=== PATIENT | female | born 1980 | race Two or more races ===

== ENCOUNTER 2018-06-29 05:50 | Inpatient (IN) | payer OTHER ==
[~2018-06-29] VITALS: Ht 152.4 cm; Wt 81.0 kg
[2018-06-29] MEDS ORDERED: OXYTOCIN 30U/ 0.9% NaCL 500ML 500 ML IV ONE (06:07)
[2018-06-29] MEDS ORDERED: D5%-LACTATED RINGERS 1,000 ML IV SCH ×3 (06:07→19:01)
[2018-06-29] MEDS ORDERED: OXYTOCIN 30U/ 0.9% NaCL 500ML 500 ML ONE (06:25)
[2018-06-29] MEDS ORDERED: MISOPROSTOL 200 MCG TABLET ONE (06:25)
[2018-06-29] MEDS ORDERED: LIDOCAINE/PF 1%, 30ML ONE (06:26)
[2018-06-29] MEDS ORDERED: CALCIUM CARBONATE 500 MG TAB.CHEW PO PRN (06:30)
[2018-06-29] MEDS ORDERED: METOCLOPRAMIDE 5 MG/ML, 2ML IVPush PRN (06:30)
[2018-06-29] MEDS ORDERED: TERBUTALINE 1 MG/ML, 1ML SQ PRN (06:30)
[2018-06-29] MEDS ORDERED: TERBUTALINE 1 MG/ML, 1ML IVPush PRN ×2 (06:30)
[2018-06-29] MEDS ORDERED: SODIUM CITRATE/CITRIC ACID 30 ML UDC PO PRN (06:30)
[2018-06-29] MEDS ORDERED: ONDANSETRON 2MG/ML, 2ML IVPush PRN ×2 (06:30→10:30)
[2018-06-29] MEDS ORDERED: ALUMINUM/MAG/SIMETHICONE 30 ML UDC PO PRN (06:30)
[2018-06-29] MEDS ORDERED: FENTANYL PF 100 MCG/2ML IV PRN (06:30)
[2018-06-29 06:31] LABS: BASOPHILS # (AUTO) 0.09 x10^3/uL (0-0.1); BASOPHILS % (AUTO) 1 % (0-1); EOSINOPHILS # (AUTO) 0.02 x10^3/uL (0-0.4); EOSINOPHILS % (AUTO) 0 % (1-7); LYMPHOCYTES # (AUTO) 1.05 x10^3/uL (1-3.4); LYMPHOCYTES % (AUTO) 13 % (22-44); MD NO; MEAN CORPUSCULAR HEMOGLOBIN 25.3 pg (27.0-34.8); MEAN CORPUSCULAR HGB CONC 32.7 g/dL (32.4-35.8); MEAN CORPUSCULAR VOLUME 77.6 fL (80-100); MEAN PLATELET VOLUME 8.7 fL (7.4-10.4); MONOCYTES # (AUTO) 0.37 x10^3/uL (0.2-0.8); MONOCYTES % (AUTO) 5 % (2-9); NEUTROPHILS # (AUTO) 6.58 x10^3/uL (1.8-6.8); NEUTROPHILS % (AUTO) 81 % (42-75); PLATELET COUNT 244 x10^3/uL (130-400); RED CELL DISTRIBUTION WIDTH 16.9 % (9.6-15.2)
[2018-06-29] MEDS ORDERED: FENTANYL PF 100 MCG/2ML ONE ×3 (06:44→20:07)
[2018-06-29] MEDS: FENTANYL PF 100 MCG/2ML IVPush PRN ×2 (06:48→08:48)
[2018-06-29] MEDS: LACTATED RINGERS 1,000 ML IV SCH ×6 (06:49→22:59)
[2018-06-29] MEDS ORDERED: FENTANYL/BUPIV./NS/PF 250 ML EPIDCONT SCH ×2 (08:28→10:14)
[2018-06-29 08:35] VITALS: BP 133/62
[2018-06-29] MEDS ORDERED: FENTANYL PF 500 MCG, BUPIVACAINE/PF 0.5%, 30ML 62.5 ML in SODIUM CHLORIDE 0.9% 177.5 ML EPIDCONT SCH (09:00)
[2018-06-29] MEDS ORDERED: BUPIVACAINE 0.25% ONE ×2 (09:42→20:08)
[2018-06-29] MEDS ORDERED: LACTATED RINGERS 1,000 ML IVBOLUS PRN (10:30)
[2018-06-29] MEDS ORDERED: DIPHENHYDRAMINE 50 MG/ML, 1ML IVPush PRN (10:30)
[2018-06-29] MEDS ORDERED: NALOXONE 0.4 MG/ML, 1ML IVPush PRN (10:30)
[2018-06-29] MEDS ORDERED: EPHEDRINE 50 MG/ML, 1ML IVPush PRN (10:30)
[2018-06-29 19:44] VITALS: BP 123/70
[2018-06-29] MEDS ORDERED: SODIUM CITRATE/CITRIC ACID 30 ML UDC ONE (20:22)
[2018-06-29] MEDS ORDERED: METOCLOPRAMIDE 5 MG/ML, 2ML ONE (20:22)
[2018-06-30] MEDS ORDERED: LACTATED RINGERS 1,000 ML IV SCH ×4 (00:31→02:12)
[2018-06-30] MEDS ORDERED: OXYTOCIN 30U/ 0.9% NaCL 500ML 500 ML IV SCH ×2 (00:31→02:12)
[2018-06-30] MEDS ORDERED: OXYTOCIN 10 UNITS/ML, 1ML ONE (00:43)
[2018-06-30] MEDS ORDERED: CEFAZOLIN 1,000 MG ONE (00:43)
[2018-06-30] MEDS ORDERED: LIDOCAINE-MPF 2% ,5ML ONE (00:43)
[2018-06-30] MEDS ORDERED: FENTANYL PF 100 MCG/2ML ONE ×2 (00:49→01:24)
[2018-06-30] MEDS ORDERED: LACTATED RINGERS 1,000 ML IVBOLUS ONE (01:00)
[2018-06-30] MEDS ORDERED: MIDAZOLAM 1 MG/ML, 2ML ONE (01:44)
[2018-06-30] MEDS: KETOROLAC 30 MG/1 ML IV SCH ×4 (02:00→20:44)
[2018-06-30] MEDS ORDERED: OXYcodone 5 MG/5 ML ORAL.SOL UDC ONE (02:23)
[2018-06-30] MEDS ORDERED: MISOPROSTOL 200 MCG TABLET PO PRN (02:30)
[2018-06-30] MEDS ORDERED: OXYcodone IR 5MG TABLET PO PRN (02:30)
[2018-06-30] MEDS ORDERED: FENTANYL PF 100 MCG/2ML IV PRN (02:30)
[2018-06-30] MEDS ORDERED: ONDANSETRON 2MG/ML, 2ML IV PRN ×2 (02:30)
[2018-06-30] MEDS ORDERED: SIMETHICONE 80 MG CHEW TAB PO PRN (02:30)
[2018-06-30] MEDS ORDERED: OXYcodone 5 MG/5 ML ORAL.SOL UDC PO PRN (02:30)
[2018-06-30] MEDS ORDERED: OXYcodone/APAP 5/325MG TABLET PO PRN (02:30)
[2018-06-30] MEDS ORDERED: morphine SULFATE 10 MG/ML, 1ML IVPush PRN ×2 (02:30)
[2018-06-30] MEDS ORDERED: DIPHENHYDRAMINE 50 MG/ML, 1ML IVPush PRN (02:30)
[2018-06-30] MEDS ORDERED: MORPHINE SULFATE 4 MG/ML, 1ML IVPush PRN (02:30)
[2018-06-30 04:00] VITALS: BP 115/72
[2018-06-30 04:06] LABS: BASOPHILS # (AUTO) 0.04 x10^3/uL (0-0.1); BASOPHILS % (AUTO) 0 % (0-1); EOSINOPHILS # (AUTO) 0.01 x10^3/uL (0-0.4); EOSINOPHILS % (AUTO) 0 % (1-7); LYMPHOCYTES # (AUTO) 0.89 x10^3/uL (1-3.4); LYMPHOCYTES % (AUTO) 6 % (22-44); MD NO; MEAN CORPUSCULAR HEMOGLOBIN 25.9 pg (27.0-34.8); MEAN CORPUSCULAR HGB CONC 33.3 g/dL (32.4-35.8); MEAN CORPUSCULAR VOLUME 77.7 fL (80-100); MEAN PLATELET VOLUME 8.7 fL (7.4-10.4); MONOCYTES # (AUTO) 0.71 x10^3/uL (0.2-0.8); MONOCYTES % (AUTO) 5 % (2-9); NEUTROPHILS # (AUTO) 13.61 x10^3/uL (1.8-6.8); NEUTROPHILS % (AUTO) 89 % (42-75); PLATELET COUNT 208 x10^3/uL (130-400); RED BLOOD COUNT 3.54 x10^6/uL (3.82-5.3)
[2018-06-30] MEDS: DOCUSATE 100 MG CAPSULE PO PRN ×2 (08:22→20:45)
[2018-06-30] MEDS: PRENATAL VIT/IRON/FA 1 EACH TABLET PO SCH (08:23)
[2018-06-30 21:55] VITALS: BP 117/78
[2018-07-01 00:20] VITALS: BP 122/81
[2018-07-01] MEDS: KETOROLAC 30 MG/1 ML IV SCH ×2 (02:40→08:30)
[2018-07-01 07:50] VITALS: BP 121/79
[2018-07-01] MEDS: DOCUSATE 100 MG CAPSULE PO PRN (09:48)
[2018-07-01] MEDS: PRENATAL VIT/IRON/FA 1 EACH TABLET PO SCH (09:48)
[2018-07-01] MEDS: IBUPROFEN 600 MG TABLET PO PRN ×2 (09:48→16:00)
[2018-07-01 19:55] VITALS: BP 121/82
[2018-07-02] MEDS: IBUPROFEN 600 MG TABLET PO PRN ×4 (01:31→20:14)
[2018-07-02 07:15] VITALS: BP 135/89
[2018-07-02] MEDS: DOCUSATE 100 MG CAPSULE PO PRN ×2 (07:29→20:14)
[2018-07-02] MEDS: PRENATAL VIT/IRON/FA 1 EACH TABLET PO SCH (07:31)
[2018-07-02 19:30] VITALS: BP 135/90
[2018-07-03] MEDS: IBUPROFEN 600 MG TABLET PO PRN ×2 (02:49→09:00)
[2018-07-03 07:30] VITALS: BP 135/88
[2018-07-03] MEDS: PRENATAL VIT/IRON/FA 1 EACH TABLET PO SCH (08:59)
[2018-07-03] MEDS: DOCUSATE 100 MG CAPSULE PO PRN (09:00)
[2018-07-03] MEDS ORDERED: IBUP-1222 PO (11:49)
== END 2018-07-03 12:45 | disposition home or self-care (01) | DRG 788 ==
LOC: LDOP 05:50 → LDIP 06:11 → 2NW 06-30 03:33
PROVIDERS: ADMIT Obstetrics & Gynecology Maternal & Fetal Medicine; ATTEND Obstetrics & Gynecology Maternal & Fetal Medicine
PROC: 10D00Z1 Extraction of Products of Conception, Low, Open Approach (ICD-10-PCS; principal; 2018-06-30)
PROC: 10907ZC Drainage of Amniotic Fluid, Therapeutic from Products of Conception, Via Natural or Artificial Opening (ICD-10-PCS; 2018-06-30)
DX: O34.211 Maternal care for low transverse scar from previous cesarean delivery (principal); Z37.0 Single live birth; O24.420 Gestational diabetes mellitus in childbirth, diet controlled; O77.0 Labor and delivery complicated by meconium in amniotic fluid; O62.0 Primary inadequate contractions; O32.4XX0 Maternal care for high head at term, not applicable or unspecified; O09.523 Supervision of elderly multigravida, third trimester; Z3A.38 38 weeks gestation of pregnancy
CPT/HCPCS: 36415; J7121; 82947; 82962; 85025; 86850; 86900; G0378; J0690; J1885; J2250; J3010; J3490; J2590; J2765; J7050; J7120